=== PATIENT | female | born 1945 | race African-American/Black ===

== ENCOUNTER → 2017-01-09 | Outpatient (CLI) | payer MEDICARE, OTHER ==
[~2017-01-09] MED LIST: LISI10TA2 PO; SITA50TA PO
--- NOTE | 2017-01-09 16:28 | KCIC ---
PROCEDURE Bilateral digital screening mammogram. HISTORY 71-year-old female presents for screening mammography. TECHNIQUE Full field digital craniocaudal and mediolateral oblique views of both breasts are obtained. Computer-aided detection is applied. COMPARISON 01/08/2016 and 01/07/2015 FINDINGS Breast parenchymal composition: Level C - Heterogeneously dense. There is no new suspicious mass, calcification or architectural distortion within either breast. There are multiple benign calcifications. IMPRESSION BI-RADS Category 2: Benign findings. Annual mammography is recommended. Mammography is not 100% sensitive in detecting breast cancer. Therefore, a self breast exam and a clinical breast exam are very important. A negative mammogram does not negate a clinically suspicious finding and should not result in a delay in biopsying a clinically suspicious abnormality. This patient's information has been entered into a reminder system for the patient to be notified with the results of this examination and a target date for her next mammograms. Electronically signed by: Darlene Madison (Jan 09, 2017 16:27:03)
== END | disposition home or self-care (01) ==
LOC: KCIC MAMMO 15:43
PROVIDERS: ATTEND Family Medicine
DX: Z12.31 Encounter for screening mammogram for malignant neoplasm of breast (principal)
CPT/HCPCS: G0202; 77067

== ENCOUNTER → 2017-07-19 | Outpatient (CLI) | payer MEDICARE, OTHER ==
--- NOTE | 2017-07-19 15:38 | KCIC ---
Thyroid ultrasound History: Goiter. Comparison: None. Findings: Right thyroid lobe measures 5.2 cm in length by 2.3 cm in transverse dimension by 2.4 cm in AP dimension. Right thyroid lobe demonstrates homogeneous echogenicity. Left thyroid lobe measures 7.0 cm in length by 2.8 cm in transverse dimension by 3.1 cm in AP dimension. Left thyroid lobe demonstrates presence of multiple nodules. Much of the superior pole and mid pole of the left thyroid demonstrates complex hypervascular mass measuring 2.4 x 2.1 x 2.3 cm. There is an additional peripherally calcified nodule which measures 1.5 cm in maximum dimension. The interpolar region demonstrates a complex nodule with hypoechoic and intermediate echoic elements which measures 1.5 x 1.2 x 0.9 cm. Thyroid isthmus demonstrates nodule measuring 1.2 cm. Impression: 1. Multiple left thyroid nodules. The largest nodule involves much of the superior and mid poles of left thyroid lobe appears hypervascular. It should be amenable to sonographic guided fine-needle aspiration. 2. Multiple additional nodules in left thyroid lobe and the isthmus. Electronically signed by: Stan Kramer MD (07/19/2017 3:35 PM) [place] [id number]
== END | disposition home or self-care (01) ==
LOC: KCIC US 12:23
PROVIDERS: ATTEND Family Medicine
DX: E04.2 Nontoxic multinodular goiter (principal)
CPT/HCPCS: 76536

== ENCOUNTER → 2018-01-24 | Outpatient (CLI) | payer MEDICARE, OTHER | END | disposition home or self-care (01) | LOC: KCIC MAMMO 12:55 | DX: Z12.31 Encounter for screening mammogram for malignant neoplasm of breast (principal) | CPT/HCPCS: 77063; 77067 ==

== ENCOUNTER → 2018-06-19 | Outpatient (CLI) | payer MEDICARE, OTHER | END | disposition home or self-care (01) | LOC: KCIC 10:56 | DX: M25.512 Pain in left shoulder (principal) | CPT/HCPCS: 73030 ==

== ENCOUNTER → 2020-04-30 | Outpatient (CLI) | payer MEDICARE, OTHER ==
--- NOTE | 2020-04-30 16:01 | KCIC ---
Bilateral digital screening mammograms: Reason for examination: Routine screening. Comparison is made to previous studies dated back to 2 05/08/2016. Interpretation was made with the benefit of CAD. The skin and nipples show no abnormalities. No abnormal axillary lymph nodes are seen. The breast parenchyma is heterogeneously dense. (Breast density: Category C) There are no dominant masses, suspicious calcifications or architectural distortion. A few benign calcifications are again seen. Impression: No evidence of malignancy. Recommend routine screening. Your patient's mammogram demonstrates that she has dense breast tissue (breast density category C or D), which could hide abnormalities, and if she has other risk factors for breast cancer that have been identified, she might benefit from supplemental screening tests that may be suggested by you as her ordering physician. Dense breast tissue, in and of itself, is a relatively common condition. Therefore, this information is not provided to cause undue concern, but rather to raise your awareness and to promote discussion with your patient regarding the presence of other risk factors, in addition to dense breast tissue. Your patient's mammography results will be sent to her. BI-RADS Category 2: Benign. "Our facility is accredited by the [employer] Mammography [employer]." This patient's information has been entered into a reminder system for the patient to be notified with the results of her examination and a target date for the next mammogram. Electronically signed by: Jessica Castillo MD (04/30/2020 3:58 PM) [email or web address]
== END ==
LOC: KCIC MAMMO 12:58
PROVIDERS: ATTEND Family Medicine
DX: Z12.31 Encounter for screening mammogram for malignant neoplasm of breast (principal)
CPT/HCPCS: 77067

== ENCOUNTER → 2021-05-05 | Outpatient (CLI) | payer BC ==
[~2021-05-05] MED LIST changes: +LISI10TA16 PO; -LISI10TA2 PO
--- NOTE | 2021-05-05 17:59 | KCIC ---
BILATERAL SCREENING MAMMOGRAM History: Routine screening. Comparison: Bilateral mammogram April 30, 2020 and prior years. Technique: Routine digital mammogram views were obtained. Findings: Breast Tissue Density B : There are scattered areas of fibroglandular density. A few benign calcifications are noted. There are no dominant masses, suspicious microcalcifications or architectural distortion. IMPRESSION: No mammographic evidence of malignancy. Recommend routine screening. BI-RADS category 2: Benign findings. The images were reviewed with computer aided detection. Patient information is entered into the reminder system with a target due date for the next screening mammogram. Mammography is the most sensitive method for finding small breast cancers, but it does not detect the m all and is not a substitute for careful clinical examination. A negative mammogram does not negate a clinically suspicious finding and should not result in delay in biopsying a clinically suspicious a bnormality. "Our facility is accredited by the [employer] Mammography [employer]." Electronically signed by: Steffen Paiz MD (05/05/2021 5:57 PM) [email or web address]
== END ==
LOC: KCIC MAMMO 10:48
PROVIDERS: ATTEND Family Medicine
DX: Z12.31 Encounter for screening mammogram for malignant neoplasm of breast (principal)
CPT/HCPCS: 77067